=== PATIENT | female | born 1950 | race Hispanic/Latino ===

== ENCOUNTER 2023-11-17 08:41 | Outpatient (CLI) | payer MEDICARE | END 2023-11-17 08:42 | disposition home or self-care (01) | LOC: BICMAMMO 08:41 | PROVIDERS: ATTEND Family Medicine | DX: M81.6 Localized osteoporosis [Lequesne] (principal); M85.851 Other specified disorders of bone density and structure, right thigh; M85.852 Other specified disorders of bone density and structure, left thigh | CPT/HCPCS: 77080 ==

== ENCOUNTER 2023-12-31 09:41 | Outpatient (CLI) | payer MEDICARE | END 2023-12-31 09:42 | disposition home or self-care (01) | LOC: BICMAMMO 09:41 | PROVIDERS: ATTEND Family Medicine | DX: Z12.31 Encounter for screening mammogram for malignant neoplasm of breast (principal); Z80.3 Family history of malignant neoplasm of breast | CPT/HCPCS: 77063; 77067 ==